=== PATIENT | female | born 1985 | race Caucasian/White ===

== ENCOUNTER → 2019-05-08 16:23 | Outpatient (CLI) | payer SELFPAY ==
[2019-04-22 10:28] VITALS: BMI 37.0
[~2019-05-08 16:23] MED LIST: DEPO PROVERA; HYDROCODON-ACE1 EAC7 PO
== END | disposition home or self-care (01) ==
LOC: D.LABREF 16:23
PROVIDERS: ATTEND Urology
DX: N39.0 Urinary tract infection, site not specified (principal)

== ENCOUNTER 2019-05-19 07:21 | Inpatient (IN) | payer SELFPAY, OTHER ==
[2019-05-15 14:26] LABS: BASOPHILS 0.3 % (0-2); EOSINOPHILS 2.1 % (0-7); HEMATOCRIT 38.3 % (36.0-48.0); HEMOGLOBIN 13.2 g/dL (12-16); IMMATURE GRANULOCYTES 0.3 % (0-5); LYMPHOCYTES 25.8 % (15-50); MCH 30.7 pg (26.0-34.0); MCHC 34.5 g/dL (31.0-37.0); MCV 89.1 fL (80.0-100.0); MEAN PLATELET VOLUME 9.2 fL (7.4-10.4); NEUTROPHILS 64.5 % (40-80); PLATELET COUNT 276 10x3/uL (130-400); RDW 12.9 % (11.5-14.5); WBC 6.8 10x3/uL (4.8-10.8)
[2019-05-15 14:43] LABS: INR 1.01 (0.85-1.17); PROTIME 13.2 SECONDS (11.6-15.0)
[2019-05-15 14:45] LABS: CALC OSMOLALITY 279 mosm/kg (275-300); CALCIUM 8.7 mg/dL (8.5-10.1); CARBON DIOXIDE 26.8 mmol/L (21.0-32.0); CHLORIDE - SERUM 106 mmol/L (98-107); CREATININE - SERUM 0.7 mg/dL (0.6-1.3); GLUCOSE 93 mg/dL (74-106); POTASSIUM - SERUM 3.4 mmol/L (3.5-5.1); SODIUM 141 mmol/L (136-145); UREA NITROGEN 11 mg/dL (7-18); eGFR NON AFRICAN AMERICAN > 90 mL/min (90-120)
[~2019-05-19] VITALS: Ht 177.8 cm; Wt 96.4 kg
[2019-05-19] VITALS (7 sets, daily range): BP systolic 110–143; BP diastolic 75–95; Ht 177.8 cm; Wt 96.4 kg
--- NOTE | ~2019-05-19 | HEMODYNAMI ---
PATIENT:VALERI CLIFFORD MEDICAL RECORD: [id number] : 81 LOCATION:[facility] ADMISSION DATE: 05/19/19 Generatedon:05/19/201910:29 Patient name: VALERI CLIFFORD Patient #: [id number] SSN: : Date of study: 05/19/2019 Page: Of Hemodynamic Procedure Report Patient Data Patient Demographics Procedure consent was obtained First Name: VALERI Gender: Female Last Name: DARRIN : 1985 [facility] Initial: ABBY Age: 34 year(s) Patient #: [id number] Race: Unknown Additional ID: [id number] Contact details [address]: [address] [place] [address] State: [place] City: [place] Zip code: [address] Past Medical History Allergies Allergen Reaction Date Comments Reported Sulfa drugs 05/19/2019 Admission Admission Data Admission Date: 05/19/2019 Admission Time: 7:30 Height (in.): 70 BSA: 2.16 (m2) Height (cm.): 177.8 BMI: 30.99 (kg/m2) Weight (lbs.): 216 Weight (kg.): 97.98 Procedure Procedure Types Cath Procedure Peripheral Cath Diagnostic Procedure Automotive Heavy Mechanic Peripheral Procedures Nephro Perc Neph Uret Cath Procedure Description Procedure Date Procedure Date: 05/19/2019 Procedure Start Time: 9:54 Procedure Staff Name Function Low Espinoza MD Performing Physician Amy Zuñiga RT Music Journalist Jacquie Polo RN Nurse Melodie Dial RN Nurse Naif Enamorado RT Scrub Procedure Data Cath Procedure Fluoroscopy Diagnostic fluoroscopy Total fluoroscopy Time: 4.6 time: 4.6 min min Diagnostic fluoroscopy Total fluoroscopy dose: 155 dose: 155 mGy mGy Contrast Material Contrast Material Type Amount (ml) Isovue 300 15 Procedure Medications Medication Administration Route Dosage Heparin Flush Bag added to field 1 bags (1000units/500ml NS) Lidocaine 1% added to field 20 Versed I.V. 1 mg Fentanyl I.V. 50 mcg Versed I.V. 1 mg Fentanyl I.V. 50 mcg Versed I.V. 1 mg Fentanyl I.V. 50 mcg Versed I.V. 1 mg Fentanyl I.V. 50 mcg Hemodynamics Rest BSA: 2.16 (m2) O2 Consumption: Estimated: 216.59 (ml/min) O2 Consumption indexed : Estimated:100.27 (ml/min/m) Heart Rate: 61 (bpm) Snapshots Pre Cath Intra NCS Post Cath Vital Signs Time Heart Resp SPO2 etCO2 NIBP (mmHg) Rhythm Pain Sedation Rate (ipm) (%) (mmHg) Status Level (bpm) 9:39:18 60 18 100 0 136/88(108) NSR 0 (11) 10(A) , No pain 9:43:36 62 17 100 35.1 126/76(99) NSR 0 (11) 10(A) , No pain 9:48:35 76 19 100 34.4 Measuring NSR 0 (11) 10(A) , No pain 9:48:43 68 18 100 35.1 70/58(64) NSR 0 (11) 10(A) , No pain 9:53:24 68 19 100 34.4 136/84(102) NSR 0 (11) 10(A) , No pain 9:57:39 67 17 99 32.1 136/83(92) NSR 0 (11) 8(A) , No pain 10:01:54 58 17 100 38.1 125/73(93) NSR 0 (11) 8(A) , No pain 10:06:09 64 14 100 40.4 126/74(92) NSR 0 (11) 8(A) , No pain 10:10:19 63 15 100 38.1 135/87(110) NSR 0 (11) 8(A) , No pain 10:14:35 67 13 100 40.4 132/77(85) NSR 0 (11) 8(A) , No pain 10:18:53 75 14 100 39.6 128/69(87) NSR 0 (11) 8(A) , No pain 10:23:07 64 12 100 34.4 123/77(93) NSR 0 (11) 8(A) , No pain 10:27:13 68 12 100 32.9 125/74(97) NSR 0 (11) 8(A) , No pain Medications Time Medication Route Dose Verified Delivered Reason Notes Effe ctiveness by by 9:57:09 Heparin Flush added 1 Low Kelsey used for Bag to bags Alexis Espinoza MD procedure (1000units/500ml field NS) 9:57:22 Lidocaine 1% added 20ml Low Kelsey for local to vial Alexis Espinoza MD anesthetic field 9:57:37 Versed I.V. 1 mg Low Dhillon for Christ Espinoza RN sedation 9:57:49 Fentanyl I.V. 50 Low Dhillon for mcg Christ Espinoza RN sedation 10:08:34 Versed I.V. 1 mg Low Dhillon for Christ Espinoza RN sedation 10:08:42 Fentanyl I.V. 50 Low Jacquie for mcg Christ Espinoza RN sedation 10:11:59 Versed I.V. 1 mg Low Jacquie for Christ Espinoza RN sedation 10:12:08 Fentanyl I.V. 50 Low Dhillon for mcg Christ Espinoza RN sedation 10:17:36 Versed I.V. 1 mg Low Dhillon for Christ Espinoza RN sedation 10:17:44 Fentanyl I.V. 50 Low Jacquie for mcg Christ Espinoza RN sedation Procedure Log Time Note 9:15:15 Patient Height : 70 inches 9:15:22 Patient Weight : 216 lbs 9:15:52 Use device set IR Diagnostic 9:16:17 CHIBA 22 X 15 needle opened to sterile field. 9:16:18 KIT, INTRODUCER ACCUSTICK II W/C ([id number]) opened to sterile field. 9:16:19 Sterile Angiographic Pack opened to sterile field. 9:16:20 Tegaderm 4 x 4 (1626W) opened to sterile field. 9:16:21 Bag Decanter (2002S) opened to sterile field. 9:16:52 GLIDE CATHETER 5FR ANGLED 65cm (CG507) opened to sterile field. 9:32:36 Time tracking: Regular hours (M-F 7:00 - 5:00) 9:32:49 Patient received from Outpatients to IR Alert and oriented. Tansferred to table in Supine position. 9:32:54 Signed procedure consent form obtained from patient. 9:33:01 H&P Date Dictated: 05/19/2019 Within 30 days and on chart., H&P Addendum completed by physician on day of procedure. (MUST COMPLETE FOR ALL OUTPATIENTS). 9:33:03 Pre-procedure instructions explained to patient. 9:33:04 Pre-op teaching completed and patient verbalized understanding. 9:33:06 Family in waiting room. 9:33:08 Patient NPO since Midnight. 9:33:22 Patient allergic to Sulfa drugs 9:33:26 Is the patient allergic to Iodine/contrast media? No. 9:33:30 Is patient on blood thinner?No 9:33:40 - 9:34:44 Patient diabetic? No. 9:35:03 HCG/Urine : completed and on chart, negative 9:35:07 - 9:35:08 ----Pre-sedation anethsthesia assessment.---- 9:35:12 Previous problem with sedation/anesthesia? No ? 9:35:15 Snore? Yes 9:35:16 Sleep apnea? No 9:35:18 Deviated septum? No 9:35:24 Opens mouth fully? Yes 9:35:28 Sticks out tongue? Yes 9:35:33 Airway obstruction? No ? 9:35:37 Dentures? No ? 9:35:39 - 9:35:48 IV patent on arrival in right wrist with D5/.45%NaCl at KVO. 9:36:11 Left Renal was prepped with chlora-prep and draped in sterile fashion. 9:38:03 1) 90+ Normal kidney functon but urine findings or structural abnormalities or genetic trait point to kidney disease. 9:38:13 - 9:38:18 ECG and BP/O2 sat monitors applied to patient. 9:38:19 Vital chart was started 9:38:21 Baseline sample Acquired. 9:38:23 Full Disclosure recording started 9:38:24 - 9:38:58 Fire Safety Assessment: A--An alcohol-based skin anteseptic being used preoperatively., C--Open oxygen or nitrous oxide is being used. 9:53:57 Physician arrived 9:53:58 --------ALL STOP TIME OUT------ 9:53:59 Final Timeout: patient, procedure, and site verified with staff and physician. All members of the team are in agreement. 9:54:32 Procedure started. 9:54:42 Local anesthetic to Left Renal area with Lidocaine 1% by oLw Espinoza MD.INITIAL ACCESS ONLY 9:57:09 Heparin Flush Bag (1000units/500ml NS) 1 bags added to field was administered by Low Espinoza MD; used for procedure; Verbal order read back and verified. 9:57:22 Lidocaine 1% 20ml vial added to field was administered by Low Espinoza MD; for local anesthetic; Verbal order read back and verified. 9:57:37 Versed 1 mg I.V. was administered by Jacquie Polo RN; for sedation; Verbal order read back and verified. 9:57:49 Fentanyl 50 mcg I.V. was administered by Jacquie Polo RN; for sedation ; Verbal order read back and verified. 10:01:26 GLIDE WIRE Super Stiff Angled 260cm ([id number]) opened to sterile field. 10:08:34 Versed 1 mg I.V. was administered by Jacquie Polo RN; for sedation; Verbal order read back and verified. 10:08:42 Fentanyl 50 mcg I.V. was administered by Jacquie Polo RN; for sedation ; Verbal order read back and verified. 10:11:59 Versed 1 mg I.V. was administered by Jacquie Polo RN; for sedation; Verbal order read back and verified. 10:12:08 Fentanyl 50 mcg I.V. was administered by Jacquie Polo RN; for sedation ; Verbal order read back and verified. 10:17:36 Versed 1 mg I.V. was administered by Jacquie Polo RN; for sedation; Verbal order read back and verified. 10:17:44 Fentanyl 50 mcg I.V. was administered by Jacquie Polo RN; for sedation ; Verbal order read back and verified. 10:21:02 Procedure ended.(Physican Out) 10:21:19 Fluoroscopy time 04.60 minutes. 10:21:24 Fluoroscopy dose: 155 mGy 10:21:24 Flurop Dose total: 155 10:21:29 Contrast amount:Isovue 300 15ml. 10:21:48 Procedure and supply charges have been captured, reviewed, submitted an d are correct. 10:21:55 Report given to Outpatients. 10:29:45 Vital chart was stopped Device Usage Item Name Manufacture Quantity Catalog Hospital Part Current Minimal Lot# / Number Charge Number Stock Stock Serial# Code CHIBA 22 X [place] [employer] 1 [id number] 5 [id number] 15 needle KIT, [place] 1 [id number] [id number] [id number] 5 INTRODUCER Scientific ACCUSTICK II W/C ([id number]) Sterile Cardinal 1 [id number] 622360 100145 5 Angiographic Health Pack Tegaderm 4 x 3M 1 1626W [id number] [id number] 5 4 (1626W) Bag Decanter Microtek 1 [id number] 28714 [id number] 5 (2002S) Medical Inc. GLIDE Terumo 1 [id number] [id number] 098623 5 CATHETER 5FR ANGLED 65cm (CG507) GLIDE WIRE Terumo 1 [id number] 171384 009344 527683 5 Super Stiff Angled 260cm (EF1415) Signature Audit [place] Stage Time Signature Unsigned Intra-Procedure 05/19/2019 Amy Zuñiga 10:29:41 AM RT(R) [facility] [address] [place] [address]
[~2019-05-19 07:21] MED LIST changes: +ACETAMINOPHEN500 M1; +AMOXICILLIN500 M1; +IBUPROFEN400 MG
[2019-05-19] MEDS ORDERED: MULTI-DAY VITAM1 TAB PO (08:02)
[2019-05-19 08:50] LABS: HCG URINE NEGATIVE (NEGATIVE)
--- NOTE | 2019-05-19 13:00 | NUR ---
1204 TO OR PER STRETCHER. Ana MITTAL R.N.
--- NOTE | 2019-05-19 14:44 | NUR ---
DR BOCANEGRA AT BEDSIDE FOR EVALUATION OF CXR. HE ORDERED A CT AND WANTS IT DONE SHERINE. CHECKED WITH FRANK OSBORNE RN FOR DEVIATION FROM POLICY, DIRECT TO CT OK'D BY HIM DUE TO A "COMPLICATIOON".
--- NOTE | 2019-05-19 15:11 | NUR ---
BLOSSOM SHEARER FROM CAME TO PACU, INFORMS US THAT UPON ARRIVAL OF ON-CALL NURSE, PT WILL BE TAKEN FOR PROCEDURE. PACU NURSE WILL CALL REPORT TO MED/SURG NURSE AND WILL BE TAKEN TO MED/SURG UPON COMPLETION OF PROCEDURE.
--- NOTE | 2019-05-19 15:14 | NUR ---
1445 - PT READY FOR D/C FROM PHASE ONE. NO BED AVAILABLE, SEE PREVIOUS NOTES. SWITCHING TO Q15 MIN VS, PHASE 2 PROTOCOL.
--- NOTE | 2019-05-19 15:40 | NUR ---
1534 - PT TRANSFERRED TO CT/IR BY BLOSSOM SHEARER
--- NOTE | 2019-05-19 16:26 | NUR ---
PATIENT ADMITTED TO ROOM 2219. ADMISSION COMPLETE. DRSG TO LEFT BACK C/D/I. DENIES NEEDS. BED LOW. CALL MENSAH AND PERSONAL ITEMS IN REACH. VITALS STABLE. WILL CONTINUE TO MONITOR.
[2019-05-20 04:00] VITALS: BP 123/85
--- NOTE | 2019-05-20 07:10 | NUR ---
PT RESTING IN BED. NO SIGNS OF DISTRESS. IV TO RIGHT HAND PATENT NO REDNESS OR TENDERNESS. ON 2L NC. HAS ZARAGOZA NO KINKS PATENT. HAS NEPHROSTOMY TUBE PATENT NO REDNESS OR TENDERNESS. COMPLAINS OF PAIN. MEDICATION GIVEN. LEFT LOWER LOBE DIMINSHED. DENIES ANY FURTHER NEED AT THIS TIME. CALL LIGHT IN REACH. BED LOW POSITION. FAMILY AT BEDSIDE AT THIS TIME.
--- NOTE | 2019-05-20 08:43 | OP ---
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 PROCEDURE: Left percutaneous nephrolithotomy (PCNL). FINDINGS: Radiodense upper pole stone. SPECIMENS: Left renal stone. ESTIMATED BLOOD LOSS: Minimal. CLINICAL HISTORY: This is a 34-year-old female, who was recently admitted to hospital with acute appendicitis. She is now post-appendectomy. A CT scan showed appendicitis as well as a 33-mm left upper pole staghorn renal calculus which fills up the upper pole jayne and infundibulum. She has a history of kidney stones, which she has spontaneously passed previously. She continues to have episodes of left flank pain and now she comes to have the stone removed by a left PCNL. SHE IS ALLERGIC TO SULFA. She was given Levaquin IV evp chief exploration officer to the OR. The patient was given insertion of an upper pole of left nephroureteral tube earlier. She now comes to have the procedure done in the OR suite. DESCRIPTION OF PROCEDURE: The patient was given induction of general anesthesia in supine position on the stretcher. She was then placed in a frogleg position and prepped and draped. A 21-Bruneian cystoscope with 30-degree lens was used for visualization. Grasping forceps were used to pull the distal end of the nephroureteral stent for ureteral tube out of the urethra. We then placed a 16-Bruneian Ornelas catheter into the bladder and put to bag drainage. The patient was then turned into the prone position on the Leonardo frame. She was then prepped and draped. An Amplatz Super Stiff wire was placed through the lumen of the nephroureteral tube and the circulating nurse placed a hemostat on the wire coming out from the urethra to prevent its backward migration and loss of access. The nephroureteral catheter was then removed entirely. A 1-cm incision was made on each side of the wire with a #15 blade. A dual-lumen catheter was then inserted over the Super Stiff wire. The catheter was placed into the proximal ureter. A Sensor wire was then placed through the second lumen and down into the bladder. The dual lumen catheter was then removed, leaving the [address] The sensor wire will act as a safety wire. This was clamped to the drapes. We worked over the Super Stiff wire. The NephroMax balloon dilator was then introduced and the tract was dilated with 16 atmospheres of pressure. The working sheath was placed down into the renal jayne containing the stone. The stone was visualized. It filled up the entire jayne and the infundibulum going down into the renal pelvis. The Yemeni LithoClast ultrasonic modality was used to completely break up the stone and suction out the fragments. The stone was extremely soft. It broke up readily. Once we removed the main bulk of the stone and the infundibular stalk, fluoroscopy revealed that there was still OPERATIVE REPORT [id number] VALERI CLIFFORD another bulk of the stone on the adjacent jayne. This was followed and removed entirely using the ultrasonic modality of the Yemeni LithoClast. We then looked further and could find no further visual or radiographic evidence of stones. The scope was removed. A 24-Bruneian Malecot catheter was inserted over the Super Stiff wire into the renal pelvis. The wire was then removed entirely. The working sheath was removed entirely. The Malecot nephrostomy tube was sutured to the skin using 2-0 nylon. This was put to bag drainage. The patient was awakened and brought to the recovery room. She will be admitted to hospital for management of the nephrostomy tube. TRANSINT:[id number] Voice Confirmation ID: [id number] DOCUMENT ID: [id number] FLORESITA BOCANEGRA MD at 0843 CC: [id number] DICTATION DATE: 05/19/19 1359 SCREEN REPAIRER CRUSHER: 05/20/19 0346 ADM IN [facility] [address] [place] [address]
[2019-05-20 09:53] VITALS: BP 136/83
[2019-05-20 13:11] VITALS: BP 131/78
[2019-05-20 17:02] VITALS: BP 130/80
--- NOTE | 2019-05-20 18:45 | NUR ---
I have reviewed this patient and I concur with the Shift Assessment completed by the Licensed Practical Nurse today this shift.
[2019-05-20 20:00] VITALS: BP 128/82
[2019-05-21] VITALS: BP 124/75
[2019-05-21 04:00] VITALS: BP 130/84
--- NOTE | 2019-05-21 07:52 | NUR ---
ALERT AND ORIENTED. LLL DIMINISHED. HEART SOUNDS S1 AND S2 HEARD IN ALL [place]. BOWEL SOUNDS ACTIVE X 4. NEPHROSTOMY TUBE AND DRSG PATENT AND INTACT. IV TO RIGHT HAND PATENT WITHOUT REDNESS. DENIES NEEDS. BED LOW. CALL MENSAH AND PERSONAL ITEMS IN REACH. WILL CONTINUE TO MONITOR.
[2019-05-21 09:03] VITALS: BP 135/84
[2019-05-21 12:10] VITALS: BP 125/88
[2019-05-21] MEDS ORDERED: TYLENOL W/CODEI1 TAB PO (12:39)
--- NOTE | 2019-05-21 13:10 | NUR ---
DISCHARGE EDUCATION PROVIDED BOTH WRITTEN AND VERBAL. VERBALIZED UNDERSTANDING. DENIES FURTHER QUESTIONS. IV REMOVED FROM RIGHT HAND WITH TIP INTACT. SUPPLIES SENT WITH PATIENT AND TO CHANGE DRSG TO BACK PRN. DENIES FURTHER NEEDS. PATIENT DISCHARGED HOME WITH WITH ALL BELONGINGS.
== END 2019-05-21 13:34 | disposition home or self-care (01) | DRG 660 ==
LOC: D.OPS 07:21 → D.PAN 07:30 → D.OPS 07:30 → D.PAN 09:30 → D.OPS 09:30 → D.MS 15:35 → D.OPS 15:36 → D.MS 15:36
PROVIDERS: General Practice; ADMIT Urology; ATTEND Urology
PROC: 0T9130Z Drainage of Left Kidney with Drainage Device, Percutaneous Approach (ICD-10-PCS; 2019-05-19)
PROC: 0TC13ZZ Extirpation of Matter from Left Kidney, Percutaneous Approach (ICD-10-PCS; principal; 2019-05-19 09:30)
DX: N20.0 Calculus of kidney (principal); J94.8 Other specified pleural conditions; J95.811 Postprocedural pneumothorax

== ENCOUNTER 2019-05-26 17:25 | Inpatient (IN) | payer SELFPAY, OTHER ==
[~2019-05-26] VITALS: Ht 177.8 cm; Wt 96.4 kg
[~2019-05-26 17:25] MED LIST changes: +MULTI-DAY VITAM1 TAB PO; +TYLENOL W/CODEI1 TAB PO
[2019-05-26 18:07] LABS: BASOPHILS 0.1 % (0-2); EOSINOPHILS 0.2 % (0-7); HEMATOCRIT 34.6 % (36.0-48.0); HEMOGLOBIN 12.2 g/dL (12-16); IMMATURE GRANULOCYTES 0.7 % (0-5); LYMPHOCYTES 5.1 % (15-50); MCH 30.7 pg (26.0-34.0); MCHC 35.3 g/dL (31.0-37.0); MCV 87.2 fL (80.0-100.0); MEAN PLATELET VOLUME 8.6 fL (7.4-10.4); MONOCYTES 3.7 % (2-11); NEUTROPHILS 90.2 % (40-80); RBC 3.97 10x6/uL (4.00-5.40); RDW 12.8 % (11.5-14.5)
[2019-05-26 18:19] LABS: PLATELET COUNT 400 10x3/uL (130-400)
[2019-05-26 18:30] LABS: CALC OSMOLALITY 268 mosm/kg (275-300); CARBON DIOXIDE 24.6 mmol/L (21.0-32.0); CHLORIDE - SERUM 98 mmol/L (98-107); CREATININE - SERUM 0.9 mg/dL (0.6-1.3); GLUCOSE 112 mg/dL (74-106); POTASSIUM - SERUM 3.4 mmol/L (3.5-5.1); SODIUM 134 mmol/L (136-145); UREA NITROGEN 13 mg/dL (7-18); eGFR NON AFRICAN AMERICAN 75 mL/min (90-120)
[2019-05-26 18:36] LABS: ALBUMIN 4.1 g/dL (3.4-5.0); ALKALINE PHOSPHATASE 60 U/L (30-120); ALT (SGPT) 22 U/L (10-68); BILIRUBIN - TOTAL 0.36 mg/dL (0.2-1.3); PROTEIN - SERUM 7.5 g/dL (6.4-8.2)
--- NOTE | 2019-05-26 19:28 | NUR ---
REPORT GIVEN TO IRENE CAMPA.
[2019-05-26 19:36] VITALS: BP 143/91
[2019-05-26 19:38] LABS: BILIRUBIN NEGATIVE (NEGATIVE); GLUCOSE NEGATIVE (NEGATIVE); KETONE NEGATIVE (NEGATIVE); NITRITE NEGATIVE (NEGATIVE); SPECIFIC GRAVITY 1.025 (1.005-1.020); UROBILINOGEN NORMAL (NORMAL)
[2019-05-26 19:39] LABS: RED CELLS - URINE 0-5 /hpf (0-5); WHITE CELLS - URINE OCC /hpf (NEGATIVE)
[2019-05-26 19:40] LABS: BACTERIA FEW /hpf (NEGATIVE)
--- NOTE | 2019-05-26 20:30 | NUR ---
OR CONSENTS SIGNED WITH KATHERYN POND RN.
--- NOTE | 2019-05-26 20:54 | NUR ---
DR BOCANEGRA HERE TO SPEAK TO PATIENT ABOUT PROCEDURE. BELONGING BAG TO PATIENT. PT CHANGED.
--- NOTE | 2019-05-26 21:24 | NUR ---
OR HERE TO TAKE PT.
[2019-05-26 21:56] LABS: HCG URINE NEGATIVE (NEGATIVE)
[2019-05-26 22:58] VITALS: BP 131/81
--- NOTE | 2019-05-26 23:00 | NUR ---
REC'D PT FROM RECOVERY POST CYSTOSCOPY W/ LEFT URETERAL STONE EXTRACTION; URETERAL STENT INSERTION. PT IS AA&O X 4. DENIES PAIN AT PRESENT. PT HAS AN IV TO RT AC W/20 GUAGE CATH. LR CURRENTLY CONNECTED TO SITE. BAG PLACED ON PUMP TO INFUSE AT 125ML/HR. REPORT REC'D FROM MYRANDA, RECOVERY NURSE. PT HAS A STENT STRING DERMABONDED TO INNER THIGH.SEE FLOWSHEET FOR ASSESSMENT. POST OP VITALS BEGUN. ADMIT ASSESSMENT STARTED.
[2019-05-26 23:07] VITALS: BP 131/81; BMI 30.4
[2019-05-26 23:12] VITALS: BP 122/89
--- NOTE | 2019-05-26 23:15 | NUR ---
THIS RN REMAINS AT BEDSIDE FOR ADMIT AND MONITORING POST PROCEDURE. PT REMAINS AA&O X 4. CONTINUES TO DENY PAIN. CONSUMING ICE CHIPS. FAMILY AT BEDSIDE.
--- NOTE | 2019-05-26 23:30 | NUR ---
THIS RN REMAINS AT BEDSIDE. POST OP VITALS STABLE. PT DENIES PAIN. NPO TEACHING PROVIDED. FURTHER HX OBTAINED.
[2019-05-26 23:32] VITALS: BP 125/84
[2019-05-26 23:49] VITALS: BP 129/92
--- NOTE | 2019-05-26 23:53 | NUR ---
PT UP W/OUT ASSISTANCE TO BR. ABLE TO VOID W/OUT DIFFICULTY. PT RETURNS TO BED. SCD WRAPS PLACED BILATERALLY. CONNECTED TO PUMP. PUMP IS ON AND FUNCTIONING.
[2019-05-27] VITALS (7 sets, daily range): BP systolic 117–136; BP diastolic 76–92; Ht 177.8 cm; Wt 96.4 kg
--- NOTE | 2019-05-27 00:30 | NUR ---
Ricardo BARRY RN TO ROOM. PILLOW AND BLANKET PROVIDED TO SPOUSE. PT DENIES PAIN OR NEEDS AT THIS TIME.
[2019-05-27] MEDS ORDERED: STOOL SOFTENER100 M1 PO (01:03)
--- NOTE | 2019-05-27 01:33 | NUR ---
PT AWAKE, LOOKING AT CELL PHONE, VS COMPLETED, PT UP TO BR, GAIT STEADY, VOIDED 500 MLS OF LIGHTLY BLOOD TINGED URINE BY SELF WITH NO DIFFICULTY, ASSISTED PT WITH CHANGING GOWN DUE TO SIZE OF GOWN, PT TO BED, SCD'S RECONNECTED AND WORKING PROPERLY, DENIES NEED FOR PAIN MED AT THIS TIME, BED IN LOW POSITION, SIDE RAILS X 2, CALL LIGHT IN REACH, S/O AT BEDSIDE
--- NOTE | 2019-05-27 04:22 | NUR ---
PT AWAKE DUE TO IV BEEPING, NEW BAG OF NS HUNG INFUSING VIA PUMP AT 125 ML/HR PER MD ORDERS, SEE EMAR, VS OBTAINED, SCD'S CONTINUE ON AND WORKING PROPERLY, PT DENIES NEEDS OR PAIN AT THIS TIME, S/O ASLEEP AT BEDSIDE
--- NOTE | 2019-05-27 05:52 | NUR ---
PT AWAKE, LAB IN ROOM FOR AM BLOOD DRAW, PT DENIES NEEDS OR PAIN AT THIS TIME, SCD'S CONTINUE ON AND WORKING PROPERLY, SPOUSE AT BEDSIDE
[2019-05-27 06:24] LABS: BASOPHILS 0.1 % (0-2); EOSINOPHILS 0.1 % (0-7); HEMATOCRIT 30.4 % (36.0-48.0); HEMOGLOBIN 10.4 g/dL (12-16); IMMATURE GRANULOCYTES 0.4 % (0-5); LYMPHOCYTES 8.2 % (15-50); MCH 30.2 pg (26.0-34.0); MCHC 34.2 g/dL (31.0-37.0); MCV 88.4 fL (80.0-100.0); MEAN PLATELET VOLUME 8.7 fL (7.4-10.4); MONOCYTES 4.2 % (2-11); PLATELET COUNT 353 10x3/uL (130-400); RBC 3.44 10x6/uL (4.00-5.40)
[2019-05-27 06:43] LABS: WBC 7.7 10x3/uL (4.8-10.8)
[2019-05-27 06:45] LABS: ALBUMIN 3.3 g/dL (3.4-5.0); ALKALINE PHOSPHATASE 54 U/L (30-120); ALT (SGPT) 17 U/L (10-68); BILIRUBIN - TOTAL 0.34 mg/dL (0.2-1.3); CALC OSMOLALITY 278 mosm/kg (275-300); CALCIUM 8.5 mg/dL (8.5-10.1); CARBON DIOXIDE 23.9 mmol/L (21.0-32.0); CHLORIDE - SERUM 106 mmol/L (98-107); CREATININE - SERUM 0.7 mg/dL (0.6-1.3); GLUCOSE 125 mg/dL (74-106); MAGNESIUM - SERUM 2.2 mg/dL (1.8-2.4); PHOSPHOROUS 3.9 mg/dL (2.5-4.9); PROTEIN - SERUM 6.4 g/dL (6.4-8.2); SODIUM 139 mmol/L (136-145); UREA NITROGEN 12 mg/dL (7-18); eGFR NON AFRICAN AMERICAN > 90 mL/min (90-120)
[2019-05-27 06:57] LABS: POTASSIUM - SERUM 4.3 mmol/L (3.5-5.1)
[2019-05-27 06:59] LABS: APTT 28.3 SECONDS (22.8-39.4); INR 1.09 (0.85-1.17)
--- NOTE | 2019-05-27 08:32 | NUR ---
RIGO LALA ROUNDING ON DR SLATER'S PATIENTS. DISCUSSING POC WITH PT AT BEDSIDE. NO NEW ORDERS RECEIVED.
--- NOTE | 2019-05-27 08:35 | NUR ---
VSS, SHIFT ASSESSMENT COMPLETED, SEE FLOWSHEET FOR DOC. POC DISCUSSED, PT DENIES NEEDS AT THIS TIME. SRUx2, CL IN REACH. SPOUSE AT BEDSIDE. WILL CONT TO MONITOR.
--- NOTE | 2019-05-27 10:12 | NUR ---
RADIOLOGY PHONED AND NOTIFIED OF NEED FOR CHEST XRAY PER ORDER, STATES WILL BE ON UNIT WHEN AVAILABLE.
--- NOTE | 2019-05-27 12:02 | NUR ---
PT REQUESTING PAIN MEDICATION FOR PAIN WITH MOVEMENT. PT RATES PAIN 4/10 AT THIS TIME, BUT STATES IS WORSE WHEN UP TO BR. IV SITE NOTED TO BE INFILATRATED IN LEFT AC. IV D/C'D, PRESSURE HELD AND BANDAID APPLIED. 22G PIV TO PT'S LEFT WRIST x2 ATTEMPTS BY THIS RN. GOOD BLOOD RETURN, PT WILBERT WELL. IV FLUIDS RESUMED AND PRN MORHPHINE ADMIN ORDERED. PT GIVEN INCENTIVE SPIROMETER WELL AND INSTRUCTED ON USE, STATES SHE HAS BEEN DEEP BREATHING ON HER OWN DUE TO RECENT LUNG EVENT. WILL CONT TO MONITOR AND REEVAL PAIN.
--- NOTE | 2019-05-27 12:37 | OP ---
PATIENT NAME: VALERI CLIFFORD MEDICAL RECORD: [id number] :81 LOCATION:[facility] ADMISSION DATE:05/26/19 SURGEON: TOMY BOCANEGRA MD DATE OF OPERATION: 05/26/2019 SURGEON: Tomy Bocanegra MD DIAGNOSIS: Left distal ureteral stones, 7 mm and 3 mm. PROCEDURES: Cystoscopy, left ureteroscopy with stone extraction, left ureteral stent insertion 6-[place] Islander x 26 cm with string attached. FINDINGS: Persistent left hydronephrosis down to the left ureterovesical junction. SPECIMENS: Two left ureteral stones. BLOOD LOSS: None. CLINICAL HISTORY: This is a 34-year-old female, who last week had a left percutaneous nephrolithotomy of a 33-mm staghorn calculus, which filled up the upper pole calices. In my view, the stone was essentially entirely removed. She stayed in the hospital for 2 days with a nephrostomy tube and then the nephrostomy tube was removed on postop day #2 and she went home. Today, she called with a complaint of acute left flank pain and burning in the left flank area. She came back to the Emergency Room. CT scan of the abdomen and pelvis with IV contrast shows left hydroureteronephrosis due to 2 stones in the left distal ureter near the UV junction. There are also some small punctate stones in the left renal pelvis due to a residue from the PCNL. There still seems to be urinary extravasation through the PCNL access tract into the retroperitoneum. Because of her acute pain, she was admitted to hospital. She had not eaten since noon time and since this is about 9 o'clock, we are going to proceed with left ureteroscopy and stone extraction. We gave her Levaquin bone process operator to the OR after having cultured her urine and blood. DESCRIPTION OF PROCEDURE: The patient was given induction of general anesthesia. She was placed in the lithotomy position and prepped and draped. Fluoroscopy showed persistence of the IV contrast that was given for the CT scan. There was a full left hydroureteronephrosis with obstruction down at the left UV junction. The stone was not entirely clear due to the presence of the contrast. Cystoscopy was performed with a 21-[place] Islander cystoscope. A sensor wire was placed up the left ureteral orifice into the left renal pelvis. Over the wire, we inserted a 21-[place] Islander x 4-cm left ureteral dilation balloon. We dilated the left ureteral orifice with 12 atmospheres of pressure for a few seconds and then deflated the balloon and removed it entirely. The cystoscope was then removed, leaving the wire in place. Over the wire, we inserted a semi-rigid ureteroscope. A 1.9-[place] Islander 0-tip basket was used to remove the 2 stones. I then performed ureteroscopy up to the UP junction and could find no further stones. The ureteroscope was then removed. The wire was backloaded onto the cystoscope. Over the wire, we inserted the 6-[place] Islander x 26-cm left ureteral stent. With the stent in correct position, the wire was withdrawn entirely. The distal end of the stent was pushed into the bladder using a pusher. The bladder was emptied through the cystoscope and then the scope was removed. The string on the distal end of the stent is maintained. It was taped to the suprapubic area with a piece of Tegaderm. The patient is being admitted to the OPERATIVE REPORT [id number] [facility]. I will have interventional radiology try to drain the perinephric urinoma, possible abscess tomorrow. TRANSINT:[id number] Voice Confirmation ID: [id number] DOCUMENT ID: [id number] TOMY BOCANEGRA MD at 1237 CC: [id number] DICTATION DATE: 05/26/192252 INSPECTOR PAPER PRODUCTS: 05/27/19 0712 ADM IN [facility] [address] [place] [address]
--- NOTE | 2019-05-27 12:40 | NUR ---
DR BOCANEGRA TO ROOM FOR ROUNDING, DISCUSSING POC WITH PT AND SPOUSE. ORDER RECEIVED FOR REGULAR DIET AND XRAY FOR RENAL STONE SIZE, POTENTIAL FOR D/C TO HOME THIS EVENING, DEPENDING ON XRAY RESULTS. WILL PROCEED ORDERED.
--- NOTE | 2019-05-27 17:07 | NUR ---
DR SLATER TO PT ROOM FOR ROUNDING, DISCUSSING POC WITH PT.
--- NOTE | 2019-05-27 17:48 | NUR ---
PT SITTING UP IN CHAIR. VISITS WITH SO. NEW BAG NS UP AT 125 ML/HR. PIV SITE CLEAR. PT DENIES PAIN OR NEEDS.
--- NOTE | 2019-05-27 19:30 | NUR ---
REPORT GIVEN BY IRENE MCDONNELL
--- NOTE | 2019-05-27 20:00 | NUR ---
IN TO PT ROOM FOR VS. INTRODUCED SELF. PT IS DOING WELL AT THIS TIME. NO C/O PAIN. IV IN THE LEFT FOREARM 18 GUAGE. PT IS TO HAVE A PROCEDURE DONE TOMORROW MORNING AND PLANNING D/C AFTER THAT. HER ABD IS TENDER ON THE RIGHT SIDE. COMPLETE ASSESSMENT DONE...SEE DOCUMENTATION. IV FLUIDS INFUSING AT 125ML/HR. AT BEDSIDE.
--- NOTE | 2019-05-27 21:00 | NUR ---
CHECKED IN ON PT. NO C/O AT THIS TIME.
--- NOTE | 2019-05-27 22:30 | NUR ---
CHECKED IN ON PT. NO PROBLEMS OR C/0. PT REQUESTED A GLASS OF WATER, WHICH WAS DELIVERED TO HER.
[2019-05-28] VITALS: BP 125/78
--- NOTE | 2019-05-28 | NUR ---
IN ROOM FOR VS. NO C/O OR PROBLEMS.
--- NOTE | 2019-05-28 02:19 | NUR ---
PT IS RESTING WITH HIS EYES CLOSED.
--- NOTE | 2019-05-28 02:50 | NUR ---
PT IS RESTING WITH HER EYES CLOSED. RESPIRATIONS EVEN.
[2019-05-28 04:00] VITALS: BP 127/84
--- NOTE | 2019-05-28 04:00 | NUR ---
AWAKE FOR VS. NO C/O NOW. STILL AT BS
[2019-05-28 06:23] LABS: BASOPHILS 0.5 % (0-2); EOSINOPHILS 1.9 % (0-7); HEMATOCRIT 29.4 % (36.0-48.0); HEMOGLOBIN 9.9 g/dL (12-16); IMMATURE GRANULOCYTES 0.5 % (0-5); MCH 30.1 pg (26.0-34.0); MCHC 33.7 g/dL (31.0-37.0); MCV 89.4 fL (80.0-100.0); MEAN PLATELET VOLUME 8.8 fL (7.4-10.4); MONOCYTES 7.6 % (2-11); NEUTROPHILS 56.5 % (40-80); PLATELET COUNT 303 10x3/uL (130-400); RBC 3.29 10x6/uL (4.00-5.40); RDW 13.3 % (11.5-14.5); WBC 5.8 10x3/uL (4.8-10.8)
--- NOTE | 2019-05-28 06:33 | NUR ---
PT RESTING QUIETLY WITH EYES CLOSED.
[2019-05-28 06:40] LABS: CALC OSMOLALITY 280 mosm/kg (275-300); CALCIUM 8.2 mg/dL (8.5-10.1); CARBON DIOXIDE 24.8 mmol/L (21.0-32.0); CHLORIDE - SERUM 107 mmol/L (98-107); CREATININE - SERUM 0.7 mg/dL (0.6-1.3); GLUCOSE 100 mg/dL (74-106); POTASSIUM - SERUM 3.9 mmol/L (3.5-5.1); SODIUM 141 mmol/L (136-145); UREA NITROGEN 12 mg/dL (7-18); eGFR NON AFRICAN AMERICAN > 90 mL/min (90-120)
[2019-05-28 08:45] VITALS: BP 116/68
--- NOTE | 2019-05-28 08:56 | NUR ---
ASSESSMENT DONE- RESTING IN BED. DENIES PAIN-DENIES NEEDS. FAMILY AT BEDSIDE.
--- NOTE | 2019-05-28 13:41 | NUR ---
TO SURGERY VIA BED ACCOMPANIED BY HOSITAL STAFF. IV REMOVED FROM PUMP AND INFUSING TO GRAVITY.
[2019-05-28 15:19] VITALS: BP 136/88
--- NOTE | 2019-05-28 15:19 | NUR ---
REC'D BACK TO ROOM 1220 FROM PACU. AA&O X4. DENIES PAIN AND NAUSEA. UP TO BR WITH STANDBY ASSIST, VOIDED 700 MLS BLOOD TINGED URINE IN HAT, DENIES PAIN. BACK TO BED. BREATH SOUNDS CLEAR AND EQUAL BILATERALLY. BOWEL SOUNDS PRESENT AND ACTIVE X4. POC DISCUSSED WITH PT, VERBALIZES UNDERSTANDING AND DENIES NEEDS. BED IN LOW POSITION WITH SRUP X2. CALL LIGHT AND PHONE WITHIN REACH. ICE CHIPS GIVEN. SPOUSE AT BEDSIDE, SUPPORTIVE AND ATTENTIVE TO PT NEEDS.
[2019-05-28 15:41] VITALS: BP 147/87
--- NOTE | 2019-05-28 15:41 | NUR ---
CONTINUES TO DENY PAIN AND NAUSEA. SPRITE PROVIDED PER PT REQUEST. VSS. WILL CONTINUE TO MONITOR.
[2019-05-28 16:00] VITALS: BP 139/88
--- NOTE | 2019-05-28 16:05 | NUR ---
VSS. REMAINS AA&OX3. DENIES NAUSEA. SANDWICH TRAY PROVIDED. WILL CONTINUE TO MONITOR.
--- NOTE | 2019-05-28 16:34 | NUR ---
PRESCRIPTION FOR NORCO PROVIDED TO SPOUSE, PT STATES THAT SHE CAN'T TAKE NORCO D/T "IT'S TOO STRONG AND MAKES ME TOO LOOPY. I ASK FOR SOMETHING MILDER." DR. BOCANEGRA NOTIFIED, STATES THAT HE IS CURRENTLY IN CASE AND FOLLOWING CASE WILL COME TO UNIT AND WRITE DIFFERENT PAIN MED. PT AND SPOUSE NOTIFIED.
--- NOTE | 2019-05-28 17:31 | NUR ---
DENIES PAIN AND NEEDS. DENIES NAUSEA. STATES THAT SHE IS READY FOR D/C SOON AND PRESCRIPTION HAS BEEN OBTAINED. BED IN LOW POSITION WITH SRUP X2. CALL LIGHT AND PHONE WITHIN REACH. WILL CONTINUE TO MONITOR.
[2019-05-28] MEDS ORDERED: TYLENOL W/CODEI1 TAB PO (17:46)
--- NOTE | 2019-05-28 18:12 | NUR ---
L WRIST PIV D/C'D, TIP INTACT, COVERED WITH BANDAID. DISCHARGE INSTRUCTIONS PROVIDED TO PT, VERBALIZES UNDERSTANDING AND DENIES QUESTIONS, VERBALIZES UNDERSTANDING AND IMPORTANCE OF FOLLOW UP APPT AND KEEPING APPTS SCHEDULED. REFUSES W/C OFF UNIT. AMBULATORY OFF UNIT WITH THIS RN. STEADY GAIT NOTED.
--- NOTE | 2019-05-29 08:50 | OP ---
PATIENT NAME: VALERI CLIFFORD MEDICAL RECORD: [id number] :81 LOCATION:[id number] ADMISSION DATE:05/26/19 SURGEON: FLORESITA BOCANEGRA MD DATE OF OPERATION: 05/26/2019 SURGEON: Floresita Bocanegra MD ANESTHESIA: General anesthesia by Fang Bonner CRNA. DIAGNOSIS: Left renal stones, the largest is 7 mm in the lower pole. PROCEDURE: Left extracorporeal shock wave lithotripsy (ESWL) times 2000 shocks. FINDINGS: Radiodense left renal stones. ESTIMATED BLOOD LOSS: None. 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 There were some fragments which escaped down the ureter and in the renal pelvis. She came back to the hospital with renal colic from a 7 mm left ureteral stone. Two days ago, I removed that stone by ureteroscopy and I inserted a left ureteral stent. Now, she comes to have the remaining stones in the left renal pelvis, treated with lithotripsy. She was covered by Levaquin IV awning craftsperson to the OR. DESCRIPTION OF PROCEDURE: The patient was placed on the treatment table. We performed fluoroscopy. We could identify the stones as radiodensities. She was then given induction of general anesthesia. The 7 mm lower pole stone was treated first. It broke up readily. Then, the 4 remaining radiodense stones which clustered around the coil of the stent were treated in succession and they also readily broke up. A total of 2000 shocks was used to break up all of the visible radiodense stones. The procedure was then terminated. I will be discharging the patient home. I will see her in followup in about 2 weeks' time with a KUB to determine if she is stone free. TRANSINT:[id number] Voice Confirmation ID: [id number] DOCUMENT ID: [id number] FLORESITA BOCANEGRA MD at 0850 CC: [id number] DICTATION DATE: 05/28/19 1454 MEDIA LIAISON OFFICER: 05/28/19 1728 DIS IN 05/28/19 [id number] [place] [address]
--- NOTE | 2019-06-01 12:08 | MORECARE ---
CASE MANAGEMENT DISCHARGE SUMMARY PATIENT: VALERI GERARDO UNIT: [id number] ADM DATE: 05/26/19 AGE: 34 : [birth year] SEX: F ROOM/BED: D.1220 AUTHOR: LATASHA TREADWELL PHYSICIAN: REFERRING PHYSICIAN: ELLA SLATER MD DATE OF SERVICE: 06/01/19 Discharge Plan Patient Name: VALERI GERARDO Facility: [facility]:[place] : 1985 Planned Disposition: Anticipated Discharge Date: Discharge Date: 05/28/2019 Expected LOS: Initial Reviewer: [email or web address] Initial Review Date: 05/26/2019 Generated: 06/01/19 1:08 pm Comments DCP- Discharge Planning Updated by [email or web address]: Chikis Lange on 05/28/19 2:[address] Plan: DC home self care. CM met with patient to discuss initial discharge planning. Patient is in agreement to proceed with the assessment. Patient reports that she lives at home independently with her spouse, . Patient is alert/oriented. Stairs/steps: PCP: Patient does not have a PCP as yet. Pharmacy: [facility]. Patient states they have been able to obtain all of their prescribed medications. HHS: No. DME: No. Patient gives permission to speak with family members/care givers. Emergency contact: Carolyne Pate (mother) [phone], (spouse) Efrem Gerardo [phone]. 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 CM discussed the availability of HH, Rehab, DME services. Patient denies the need for additional services at this time and feels safe returning to previous environment. Patient has been hospitalized within the past 30 days. Patient denies the use of community resources [employer]. Transportation at time of discharge: Efrem Gerardo. CM will assist PRN with DC needs/plans. Patient Name: VALERI GERARDO Page [id number] at 1208 All edits/amendments must be made on the electronic document DICTATION DATE: 06/01/19 1208 SUPERVISORY INVESTIGATIVE SPECIALIST: CHRISTIAN 06/01/19 1208 RPT#: [id number] DC DATE:05/28/19 STATUS: DIS IN [facility] [address] [place] [address] END OF REPORT
== END 2019-05-28 18:12 | disposition home or self-care (01) | DRG 660 ==
LOC: D.ER 17:25 → D.WS 20:10
PROVIDERS: Anesthesiology; Family Medicine; Urology; ADMIT Internal Medicine Nephrology; ATTEND Internal Medicine Nephrology
PROC: 0T778DZ Dilation of Left Ureter with Intraluminal Device, Via Natural or Artificial Opening Endoscopic (ICD-10-PCS; principal; 2019-05-26 21:35)
PROC: 0TF4XZZ Fragmentation in Left Kidney Pelvis, External Approach (ICD-10-PCS; 2019-05-26 21:35)
DX: N13.30 Unspecified hydronephrosis (principal); E87.1 Hypo-osmolality and hyponatremia; D64.9 Anemia, unspecified; E87.6 Hypokalemia; N13.6 Pyonephrosis

== ENCOUNTER → 2019-06-03 17:04 | Outpatient (CLI) | payer SELFPAY, OTHER ==
[2019-05-27 10:05] VITALS: BMI 30.4
[~2019-06-03 17:04] MED LIST changes: +STOOL SOFTENER100 M1 PO
== END | disposition home or self-care (01) ==
LOC: D.LABREF 17:04
PROVIDERS: ATTEND Urology
DX: R31.9 Hematuria, unspecified (principal); R82.90 Unspecified abnormal findings in urine